=== PATIENT | male | born 1955 | race Caucasian/White ===

== ENCOUNTER 2016-06-21 20:50 | Inpatient (IN) ==
[2016-06-21] MEDS: Budesonide/Formoterol 160/4.5 MDI IH SCH (22:46)
[2016-06-22 05:36] LABS: Basophils # 0.1 K/mcL (0.0-0.2); Basophils % 0.9 %; Eosinophils % 0.2 %; Hematocrit 35.6 % (37.5-50.1); Hemoglobin 11.7 g/dL (12.9-16.9); Immature Granulocytes % 14.2 % (0-4); Lymphocytes # 1.6 K/mcL (0.6-4.6); Mean Corpuscular HGB Conc 32.9 g/dL (31.6-35.5); Mean Corpuscular Hemoglobin 30.2 pg (28.0-33.3); Mean Platelet Volume 11.4 fL (9.4-12.4); Monocytes # 0.9 K/mcL (0.0-1.3); Monocytes % 6.9 %; Neutrophils # 8.7 K/mcL (1.6-8.9); Nucleated Red Blood Cells 0.2 /100 WBC (0); Platelet Count 160 K/mcL (140-400); Red Blood Count 3.87 M/mcL (4.19-5.50); Red Cell Distribution Width 17.3 % (11.5-14.5); Segmented Neutrophils % 65.8 %
[2016-06-22 05:37] LABS: INR 1.2; Prothrombin Time 12.7 Seconds (9.4-12.1)
[2016-06-22 05:40] LABS: Activated Partial Thrombo Time 37.9 Seconds (26.0-36.0)
[2016-06-22 05:56] LABS: BUN/Creatinine Ratio 26 (6-26); Blood Urea Nitrogen 29 mg/dL (8-26); Calcium 9.5 mg/dL (8.6-10.8); Carbon Dioxide 30 mEq/L (19-29); Chloride 101 mEq/L (98-109); Glucose 92 mg/dL (70-99); Osmolality,Calculated 297 (280-300); Potassium 4.5 mEq/L (3.5-4.5); Sodium 141 mEq/L (136-145); eGFR For African Americans > 60 (> 60); eGFR For Non-African Americans > 60 (> 60)
[2016-06-22 06:15] LABS: Platelet Estimate Normal (Normal)
[2016-06-22 06:17] LABS: Anisocytosis 1+ (Not Present); Macrocytosis Present (Not Present); Microcytosis Present (Not Present)
[2016-06-22] MEDS: Aspirin 81 MG TAB.CHEW PO SCH (08:36)
[2016-06-22] MEDS: Carbidopa/Levodopa 25/100 TABLET PO SCH (08:37)
[2016-06-22] MEDS: PredniSONE 20 MG TABLET PO SCH (08:37)
--- NOTE | 2016-06-22 08:49 | Internal Med History&Physical ---
Date of Encounter: 06/22/16 Time of Encounter: 08:47 Assessment and Plan (1) Physical deconditioning Current visit: Yes Status: Acute Doing better. Walks 60 feet today. On 3 L continuous oxygen. Still has some dyspnea on exertion. PTOT to work on endurance, strength.Mr. Cheng is a 60 year old male transferred here status post respiratory failure. Patient initially presented to the ED on June 16 with shortness of breath and cough that started 3 days prior. Patient is a history of COPD and wears home oxygen patient had a syncopal episode and slipped in the bathroom on the floor all night. When the EMS arrived, he was found to be respiratory failure. He was intubated on the scene. He was treated for sepsis and acute COPD exacerbation with pneumonia. Patient was treated with IV antibiotics, IV pressors and IV steroids. Patient was eventually extubated. Pressors were weaned off. He is on oral antibiotics. He is here for medical deconditioning (2) Acute on chronic respiratory failure with hypoxia and hypercapnia Current visit: No Status: Chronic On oxygen. Lungs are clear today. Respiratory status stable Internal Medicine - H&P: HPI Admitted From: Intrahospital Transfer Plans for Post Hospital Care: Home History of present illness: Mr. Cheng is a 60 year old male transferred here status post respiratory failure. Patient initially presented to the ED on June 16 with shortness of breath and cough that started 3 days prior. Patient is a history of COPD and wears home oxygen patient had a syncopal episode and slipped in the bathroom on the floor all night. When the EMS arrived, he was found to be respiratory failure. He was intubated on the scene. He was treated for sepsis and acute COPD exacerbation with pneumonia. Patient was treated with IV antibiotics, IV pressors and IV steroids. Patient was eventually extubated. Pressors were weaned off. He is on oral antibiotics. He is here for medical deconditioning Past Med Surg Social Fam HX - Past Medical History Medical history: COPD, coronary artery disease, CVA, GERD, hyperlipidemia, hypertension, myocardial infarction Psychiatric history: anxiety, depression - Past Surgical History Surgical History: coronary bypass (CABG), herniorrhaphy, orthopedic, other, pacemaker/AICD, AICD, pacemaker - Social History Smoking Status: Former smoker Smokeless Tobacco Status: No Alcohol use: none Drug use: marijuana - Family History Sister Adopted: [place]: dorie coburn Age: 68 Family Member Ethnicity: Non- Living Status: Still Living Hx Family Cardiac Disorders: Yes Hx Family Respiratory Disorders: Yes Hx Family Cancer: Yes Hx Family GI Disorders: Yes Hx Family Genitourinary Disorders: No Hx Family Endocrine Disorder: Yes Hx Family Musculoskeletal Disorders: No Hx Family Neuromuscular Disorders: No Hx Family Neurologic Disorders: No Hx Family HEENT Disorders: No Hx Family Autoimmune Disorders: No Hx Family Reproductive Disorders: No Hx Family Psychosocial Disorders: No Hx Family Medical Disorders: No Internal Medicine - H&P: Meds Albuterol Sulfate [Ventolin Hfa] 2 puff IH BID PRN 03/29/16 [History] Aspirin 81 mg PO DAILY 03/29/16 [History] Budesonide/Formoterol 160/4.5 [Symbicort 160/4.5] 2 puff IH BIDR 03/29/16 [ History] Calcium Carbonate [Calcium] 600 mg PO BID 03/29/16 [History] Carbidopa/Levodopa [Carbidopa-Levo 25-100 mg Odt] 1 tab PO DAILY 03/29/16 [ History] Carvedilol [Coreg] 12.5 mg PO BID 03/29/16 [History] Enalapril Maleate [Vasotec] 5 mg PO BID 03/29/16 [History] Lovastatin 40 mg PO HS 03/29/16 [History] Levofloxacin [Levaquin] 500 mg PO DAILY #3 tablet 06/21/16 [Rx] PredniSONE 40 mg PO DAILY #30 tablet 06/21/16 [Rx] Allergies Hydromorphone [From Dilaudid] Allergy (Verified 06/16/16 15:17) Hives All Systems PM: A 10-system review of systems was performed and is negative for pertinent findings except as documented above in the HPI. - Constitutional Constitutional: fatigue, malaise - Cardiovascular Cardiovascular ROS IM: lightheadedness, no chest pain, no diaphoresis, no dyspnea, no palpitations, no syncope - Respiratory Respiratory: cough, dyspnea on exertion, no dyspnea, no wheezing, no excessive phlegm production - Gastrointestinal Gastrointestinal: no abdominal pain, no diarrhea, no hematemesis, no hematochezia, no melena, no nausea, no vomiting - Musculoskeletal Musculoskeletal ROS IM: arthralgias, back pain, stiffness - Constitutional Vitals: Temp Pulse Resp BP Pulse Ox 97.5 F L 60 16 118/63 90 L 06/22/16 04:00 06/22/16 07:00 06/22/16 07:00 06/22/16 07:00 06/22/16 07:00 General appearance: Present: A&O X 3, pleasant, no acute distress - Respiratory Respiratory exam: Present: CTAB. Absent: accessory muscle use, rales, rhonchi, wheezes - Cardiovascular Cardiovascular exam: Present: RRR, +S1, +S2. Absent: diastolic murmur, gallop, rubs, systolic murmur - GI/Abdominal GI/Abdominal exam: Present: normal bowel sounds, soft, no peritoneal signs. Absent: distended, tenderness - Extremities Exam Extremities exam: Present: warm, radial pulses palpable and symetrical. Absent : calf tenderness, cyanotic, pedal edema - Neurological Exam Neurological exam: Present: CN II-XII intact, oriented X3, no focal deficits. Absent: pronater drift, facial droop, speech deficit Internal Med - H&P Results - Labs CBC & Chem 7: 06/22/16 05:20 06/22/16 05:20 Labs: Short CBC 06/22/16 Range/Units 05:20 WBC 13.2 H (4.3-11.1) K/mcL Hgb 11.7 L (12.9-16.9) g/dL Hct 35.6 L (37.5-50.1) % Plt Count 160 (140-400) K/mcL Neutrophils # 8.7 (1.6-8.9) K/mcL BMP 06/22/16 05:20 Sodium 141 Potassium 4.5 Chloride 101 Carbon Dioxide 30 H BUN 29 H Creatinine 1.12 Glucose 92 Calcium 9.5 - VTE Documentation of Mechanical Device: Graduated compression elastic hosiery
[2016-06-22] MEDS: Budesonide/Formoterol 160/4.5 MDI IH SCH ×2 (10:10→20:09)
[2016-06-23] MEDS: Aspirin 81 MG TAB.CHEW PO SCH (09:15)
[2016-06-23] MEDS: Carbidopa/Levodopa 25/100 TABLET PO SCH (09:15)
[2016-06-23] MEDS: PredniSONE 20 MG TABLET PO SCH (09:15)
[2016-06-23] MEDS: Budesonide/Formoterol 160/4.5 MDI IH SCH ×2 (10:04→21:03)
--- NOTE | 2016-06-23 11:37 | Internal Med Progress Note ---
Date of Encounter: 06/23/16 Time of Encounter: 11:00 - Assessment and plan (1) Physical deconditioning Current Visit: Yes Status: Acute Assessment and plan: Patient got deconditioned after significant attack of COPD (2) COPD (chronic obstructive pulmonary disease) Current Visit: No Status: Acute Assessment and plan: Patient had respiratory failure. Qualifiers: COPD type: COPD with acute lower respiratory infection Qualified Code(s): J44.0 - Chronic obstructive pulmonary disease with acute lower respiratory infection (3) COPD with exacerbation Current Visit: No Status: Acute Assessment and plan: Patient had exacerbation of COPD improved. - Time Spent With Patient less than 15 minutes - Subjective Interval history: Patient is improved currently sleeping and resting. - Constitutional Vitals: Temp Pulse Resp BP Pulse Ox 97.8 F 68 16 106/62 90 L 06/23/16 07:36 06/23/16 07:36 06/23/16 07:36 06/23/16 07:36 06/23/16 09:00 General appearance: Present: A&O X 3, pleasant, no acute distress - Head Head exam: Present: atraumatic, normal inspection, normocephalic - Neck Neck exam general surgery: Present: supple, trachea midline. Absent: lymphadenopathy - Respiratory Respiratory exam: Present: CTAB. Absent: accessory muscle use, rales, rhonchi, wheezes - Cardiovascular Cardiovascular exam: Present: RRR, +S1, +S2. Absent: diastolic murmur, gallop, rubs, systolic murmur Internal Medicine: Result - Labs CBC & Chem 7: 06/22/16 05:20 06/22/16 05:20 Labs: Lab is tolerable - ABG Interpretation ABG results: PT/INR, D-dimer PT 12.7 Seconds (9.4-12.1) H 06/22/16 05:20 - VTE Documentation of Mechanical Device: Graduated compression elastic hosiery Consult Discharge Plan - Plan Referrals: Serafin Bui Jr, MD [Primary Care Provider] -
[2016-06-24 05:40] LABS: Basophils # 0.1 K/mcL (0.0-0.2); Basophils % 0.6 %; Eosinophils % 0.2 %; Hematocrit 39.4 % (37.5-50.1); Hemoglobin 12.9 g/dL (12.9-16.9); Immature Granulocytes % 10.5 % (0-4); Lymphocytes # 1.5 K/mcL (0.6-4.6); Lymphocytes % 11.7 %; Mean Corpuscular HGB Conc 32.7 g/dL (31.6-35.5); Mean Corpuscular Hemoglobin 30.2 pg (28.0-33.3); Mean Corpuscular Volume 92.3 fL (83.0-100.0); Mean Platelet Volume 10.8 fL (9.4-12.4); Monocytes # 1.3 K/mcL (0.0-1.3); Monocytes % 10.1 %; Neutrophils # 8.3 K/mcL (1.6-8.9); Nucleated Red Blood Cells 0.2 /100 WBC (0); Platelet Count 179 K/mcL (140-400); Red Blood Count 4.27 M/mcL (4.19-5.50); Red Cell Distribution Width 17.4 % (11.5-14.5); Segmented Neutrophils % 66.9 %
[2016-06-24 05:45] LABS: BUN/Creatinine Ratio 26 (6-26); Blood Urea Nitrogen 30 mg/dL (8-26); Calcium 10.1 mg/dL (8.6-10.8); Carbon Dioxide 32 mEq/L (19-29); Chloride 99 mEq/L (98-109); Glucose 113 mg/dL (70-99); Osmolality,Calculated 295 (280-300); Potassium 4.9 mEq/L (3.5-4.5); Sodium 139 mEq/L (136-145); eGFR For African Americans > 60 (> 60); eGFR For Non-African Americans > 60 (> 60)
[2016-06-24 06:13] LABS: Platelet Estimate Normal (Normal); Smudge Cells Present (Not Present)
[2016-06-24] MEDS: PredniSONE 20 MG TABLET PO SCH (08:48)
[2016-06-24] MEDS: Carbidopa/Levodopa 25/100 TABLET PO SCH (08:48)
[2016-06-24] MEDS: Aspirin 81 MG TAB.CHEW PO SCH (08:48)
[2016-06-24] MEDS: Budesonide/Formoterol 160/4.5 MDI IH SCH ×2 (08:49→20:37)
--- NOTE | 2016-06-24 13:05 | Internal Med Progress Note ---
Date of Encounter: 06/24/16 Time of Encounter: 13:03 - Assessment and plan (1) Physical deconditioning Current Visit: Yes Status: Acute Assessment and plan: PT and OT continuing to work on improving endurance, strengthening, ADL patient performs comprehensive program. Still has limiting factors due to his dyspnea on exertion. Continue to need supplemental oxygen%. (2) Acute on chronic respiratory failure with hypoxia and hypercapnia Current Visit: No Status: Chronic - Time Spent With Patient less than 15 minutes - Subjective Interval history: Still complains of generalized weakness. Complaints of dyspnea on exertion. No chest pain. Good oral intake. - Constitutional Vitals: Temp Pulse Resp BP Pulse Ox 98.1 F 65 16 112/68 90 L 06/24/16 08:00 06/24/16 11:08 06/24/16 11:08 06/24/16 11:08 06/24/16 11:08 General appearance: Present: A&O X 3, pleasant, no acute distress - Respiratory Respiratory exam: Present: CTAB. Absent: accessory muscle use, rales, rhonchi, wheezes - Cardiovascular Cardiovascular exam: Present: RRR, +S1, +S2. Absent: diastolic murmur, gallop, rubs, systolic murmur - GI/Abdominal GI/Abdominal exam: Present: normal bowel sounds, soft, no peritoneal signs. Absent: distended, tenderness - Extremities Exam Extremities exam: Present: warm, radial pulses palpable and symetrical. Absent : calf tenderness, cyanotic, pedal edema Internal Medicine: Result - Labs CBC & Chem 7: 06/24/16 05:15 06/24/16 05:15 Labs: Short CBC 06/24/16 Range/Units 05:15 WBC 12.4 H (4.3-11.1) K/mcL Hgb 12.9 (12.9-16.9) g/dL Hct 39.4 (37.5-50.1) % Plt Count 179 (140-400) K/mcL Neutrophils # 8.3 (1.6-8.9) K/mcL BMP 06/24/16 05:15 Sodium 139 Potassium 4.9 H Chloride 99 Carbon Dioxide 32 H BUN 30 H Creatinine 1.16 Glucose 113 H Calcium 10.1 - ABG Interpretation ABG results: PT/INR, D-dimer PT 12.7 Seconds (9.4-12.1) H 06/22/16 05:20 - VTE Documentation of Mechanical Device: Graduated compression elastic hosiery Consult Discharge Plan - Plan Referrals: Serafin Bui Jr, MD [Primary Care Provider] -
[2016-06-25] MEDS: PredniSONE 20 MG TABLET PO SCH (08:47)
[2016-06-25] MEDS: Aspirin 81 MG TAB.CHEW PO SCH (08:47)
[2016-06-25] MEDS: Carbidopa/Levodopa 25/100 TABLET PO SCH (08:47)
[2016-06-25] MEDS: Budesonide/Formoterol 160/4.5 MDI IH SCH ×2 (08:48→20:02)
--- NOTE | 2016-06-25 14:39 | Internal Med Progress Note ---
Date of Encounter: 06/25/16 Time of Encounter: 14:00 - Assessment and plan (1) Physical deconditioning Current Visit: Yes Status: Acute Assessment and plan: Much improved ambulating length of the [place] etc. (2) COPD (chronic obstructive pulmonary disease) Current Visit: No Status: Acute Assessment and plan: The exacerbation is really settled down and he is wearing O2 per nasal cannula but otherwise doing well as good ambulating in the [place]. Qualifiers: COPD type: COPD with acute lower respiratory infection Qualified Code(s): J44.0 - Chronic obstructive pulmonary disease with acute lower respiratory infection (3) COPD with exacerbation Current Visit: No Status: Acute Assessment and plan: This seems to have been resolved for the moment - Time Spent With Patient less than 15 minutes - Subjective Interval history: Patient is much improved color is good and he has no complaints be discharged tomorrow recheck lab in chest x-ray name - Constitutional Vitals: Temp Pulse Resp BP Pulse Ox 98.2 F 72 16 96/66 95 06/25/16 07:32 06/25/16 07:32 06/25/16 07:32 06/25/16 07:35 06/25/16 10:01 General appearance: Present: A&O X 3, pleasant, no acute distress - Head Head exam: Present: atraumatic, normal inspection, normocephalic - Neck Neck exam general surgery: Present: supple, trachea midline. Absent: lymphadenopathy - Respiratory Respiratory exam: Present: CTAB. Absent: accessory muscle use, rales, rhonchi, wheezes - Cardiovascular Cardiovascular exam: Present: RRR, +S1, +S2. Absent: diastolic murmur, gallop, rubs, systolic murmur - GI/Abdominal GI/Abdominal exam: Present: normal bowel sounds, soft, no peritoneal signs. Absent: distended, tenderness Internal Medicine: Result - Labs CBC & Chem 7: 06/24/16 05:15 06/24/16 05:15 Labs: Watch BUN and potassium. - ABG Interpretation ABG results: PT/INR, D-dimer PT 12.7 Seconds (9.4-12.1) H 06/22/16 05:20 - VTE Documentation of Mechanical Device: Graduated compression elastic hosiery Consult Discharge Plan - Plan Referrals: Serafin Bui Jr, MD [Primary Care Provider] - 07/04/16 10:00 am
[2016-06-26 05:45] LABS: Basophils % 0.3 %; Eosinophils % 0.2 %; Hematocrit 37.6 % (37.5-50.1); Hemoglobin 12.1 g/dL (12.9-16.9); Lymphocytes # 1.5 K/mcL (0.6-4.6); Lymphocytes % 15.3 %; Mean Corpuscular HGB Conc 32.2 g/dL (31.6-35.5); Mean Corpuscular Hemoglobin 29.9 pg (28.0-33.3); Mean Corpuscular Volume 92.8 fL (83.0-100.0); Mean Platelet Volume 10.8 fL (9.4-12.4); Monocytes % 10.2 %; Neutrophils # 6.6 K/mcL (1.6-8.9); Platelet Count 177 K/mcL (140-400); Red Blood Count 4.05 M/mcL (4.19-5.50); Red Cell Distribution Width 16.7 % (11.5-14.5)
[2016-06-26 07:22] VITALS: BP 106/67
[2016-06-26] MEDS: PredniSONE 20 MG TABLET PO SCH (08:30)
[2016-06-26] MEDS: Aspirin 81 MG TAB.CHEW PO SCH (08:30)
[2016-06-26] MEDS: Carbidopa/Levodopa 25/100 TABLET PO SCH (08:31)
[2016-06-26] MEDS: Budesonide/Formoterol 160/4.5 MDI IH SCH (08:34)
--- NOTE | 2016-06-26 11:38 | Discharge Summary ---
Date of Encounter: 06/26/16 Time of Encounter: 11:00 - Discharge Diagnosis (1) Physical deconditioning Priority: Primary Status: Acute Comments: Patient was admitted because of deconditioning due to respiratory failure (2) COPD (chronic obstructive pulmonary disease) Priority: Primary Status: Acute Comments: COPD right now is quiescent Qualifiers: COPD type: COPD with acute lower respiratory infection Qualified Code(s): J44.0 - Chronic obstructive pulmonary disease with acute lower respiratory infection (3) COPD with exacerbation Priority: Primary Status: Acute Comments: Much improved and stable - Discharge Medications Home Medications: Albuterol Sulfate [Ventolin Hfa] 2 puff IH BID PRN 03/29/16 [History] Aspirin 81 mg PO DAILY 03/29/16 [History] Budesonide/Formoterol 160/4.5 [Symbicort 160/4.5] 2 puff IH BIDR 03/29/16 [ History] Calcium Carbonate [Calcium] 600 mg PO BID 03/29/16 [History] Carbidopa/Levodopa [Carbidopa-Levo 25-100 mg Odt] 1 tab PO DAILY 03/29/16 [ History] Carvedilol [Coreg] 12.5 mg PO BID 03/29/16 [History] Enalapril Maleate [Vasotec] 5 mg PO BID 03/29/16 [History] Lovastatin 40 mg PO HS 03/29/16 [History] Levofloxacin [Levaquin] 500 mg PO DAILY #3 tablet 06/21/16 [Rx] PredniSONE 40 mg PO DAILY #30 tablet 06/21/16 [Rx] Allergies/Adverse Reactions: Allergies Hydromorphone [From Dilaudid] Allergy (Verified 06/16/16 15:17) Hives Date of admission: 06/21/16 20:54 Primary care physician: Serafin Bui Jr, MD Consults: 06/21/16 21:28 Consult to Occupational Therapy [CONS] Routine Comment: Evaluate, develop and implement POC Consult to Physical Therapy [CONS] Routine Comment: Evaluate, develop and implement POC Consult to Recreational Therapy [CONS] Routine Comment: Evaluate, develop and implement POC Consult to Glass Polisher [CONS] Routine Reason for SW Consult: d/c planning Discharging clinician: Shaun Wagner Anticipated date of discharge: 06/26/16 - Patient Status Disposition: Home, Self-Care Condition: Good Functional capacity at discharge: uses cane/walker Overall status at discharge: patient is progressing back to baseline - Discharge Instructions Instructions: How to Take a Blood Pressure (DC), Chronic Obstructive Pulmonary Disease (DC) Follow Up With: Serafin Bui Jr, MD [Primary Care Provider] - 07/04/16 10:00 am - Diet and Activity Activity: ambulate only with your walker Diet: advance to your usual diet Interval History: Patient had apparently had a respiratory infection with his COPD and respiratory failure. He was intubated. Post extubation he was deconditioned Hospital course: Mr. Cheng is a 61 year old male He is currently ambulating in the [place] doing well and is going to be discharged with his family today - Time Spent with Patient Total time spent providing and/or coordinating discharge services: Less than 30 minutes - Constitutional Vitals: Temp Pulse Resp BP Pulse Ox 97.7 F 55 16 106/67 96 06/26/16 07:00 06/26/16 07:00 06/26/16 07:00 06/26/16 07:00 06/26/16 07:00 General appearance: Present: A&O X 3, pleasant, no acute distress - Head Head exam: Present: atraumatic, normal inspection, normocephalic - Neck Neck exam general surgery: Present: supple, trachea midline. Absent: lymphadenopathy - Respiratory Respiratory exam: Present: CTAB. Absent: accessory muscle use, rales, rhonchi, wheezes - Cardiovascular Cardiovascular exam: Present: RRR, +S1, +S2. Absent: diastolic murmur, gallop, rubs, systolic murmur - VTE Documentation of Mechanical Device: Graduated compression elastic hosiery
== END 2016-06-26 13:00 | disposition home or self-care (01) | DRG 190 ==
LOC: INPGRE 20:54
PROVIDERS: ADMIT Internal Medicine; ATTEND Internal Medicine